=== PATIENT | male | born 1990 ===

== ENCOUNTER 2017-07-16 19:30 | Emergency (ER) | payer BC, OTHER ==
[2017-07-16 19:38] VITALS: TEMP 98.1; O2SAT 98
[2017-07-16] MEDS ORDERED: Tetracaine 0.5% Ophth (OR ONLY) ONE (19:49)
[2017-07-16] MEDS ORDERED: Fluorescein 1 mg Ophthalmic Strip ONE (19:49)
--- NOTE | 2017-07-16 20:05 | C.PDOC ---
History Of Present Illness 26 yr old male presents to the ER with right eye redness, discharge and discomfort for the past 2 days. Patient states he wears contact lens but has not slept in them and has not changed them in a while. Patient denies fever, vision changes, headache or dizziness. Time Seen by Provider: 07/16/17 19:42 Chief Complaint (Nursing): Eye Problem History Per: Patient History/Exam Limitations: no limitations Onset/Duration Of Symptoms: Days (2) Current Symptoms Are (Timing): Still Present Injury To Eye?: No Wears Contact Lens?: Yes Associated Symptoms: Pain, Discharge From Eye Recent travel outside of the [place]: No Past Medical History Reviewed: Historical Data, Nursing Documentation, Vital Signs Vital Signs: Last Vital Signs Temp 98.1 F 07/16/17 19:37 Pulse 69 07/16/17 20:25 Resp 18 07/16/17 20:25 BP 122/69 07/16/17 20:25 Pulse Ox 98 07/16/17 20:30 Family History: States: No Known Family Hx - Social History Hx Tobacco Use: Yes ("sometimes") Hx Alcohol Use: Yes Hx Substance Use: No - Immunization History Hx Tetanus Toxoid Vaccination: No Hx Influenza Vaccination: No Hx Pneumococcal Vaccination: No Review Of Systems Except As Marked, All Systems Reviewed And Found Negative. Constitutional: Negative for: Fever Eyes: Positive for: Pain (Right eye discharge and discomfort), Redness (Right eye). Negative for: Vision Change Neurological: Negative for: Headache, Dizziness Physical Exam - Physical Exam Appears: Non-toxic, No Acute Distress Skin: Warm, Dry, No Rash Head: Atraumatic, Normacephalic Eye(s): bilateral: PERRL, EOMI (Right: 20/50. Left: 20/70. Without correction. ) , right: Other (Moderate scleral injection. Whitish discharge from lower eyelid. No abrasion.), left: Normal Inspection Neurological/Psych: Oriented x3 Gait: Steady ED Course And Treatment O2 Sat by Pulse Oximetry: 98 (RA) Pulse Ox Interpretation: Normal Progress Note: Tobramycin applied and given to pt to continue for 5 d. Pt advised not to use contact lenses until resolution of sx. Patient instructed to follow up with eye doctor in 1-2 days for further evaluation. Return percautions discussed with patient. Medical Decision Making Medical Decision Making: PLAN: * Tobramycin OD Disposition - Disposition Referrals: Russ Ayers MD [Staff Provider] - Disposition: HOME/ ROUTINE Disposition Time: 20:04 Condition: STABLE Additional Instructions: Please follow up with Eye doctor Use ointment to affected eye Apply warm compress Return to ER if worse Prescriptions: Tobramycin 0.3% [Tobrex] 0.3 % OP BID #1 tube Instructions: Conjunctivitis (ED) Forms: [facility] (Iranian), Work Excuse - Clinical Impression Clinical Impression: Conjunctivitis - PA / CLINICAL STATISTICS MANAGER / Resident Statement MD/DO has reviewed & agrees with the documentation as recorded. - Scribe Statement The provider has reviewed the documentation as recorded by the Scribe Brie Aguilera All medical record entries made by the Fransiscoibe were at my direction and personally dictated by me. I have reviewed the chart and agree that the record accurately reflects my personal performance of the history, physical exam, medical decision making, and the department course for this patient. I have also personally directed, reviewed, and agree with the discharge instructions and disposition.
[2017-07-16] MEDS ORDERED: Tobramycin 0.3% OPH OINT OD STA (20:06)
[2017-07-16] MEDS ORDERED: Tobramycin 0.3% OPH OINT ONE (20:09)
[2017-07-16 20:39] VITALS: BP 122/69; PULSE 69; RESP 18
== END 2017-07-16 20:31 | disposition home or self-care (01) ==
LOC: SUPCPDRO 19:30 → C.ER 19:30
DX: H10.9 Unspecified conjunctivitis (principal)